=== PATIENT | female | born 1970 | race Native Hawaiian/Other Pacific Islander ===

== ENCOUNTER 2017-04-19 10:39 | Outpatient (CLI) | payer BC ==
[~2017-04-19 10:39] MED LIST: ACCU-CHEK AVIVA PLUS XX; AVIANE OR; B12-ACTIVE1 MG PO; BENZONATATE200 MG PO; CEFTIN500 MG OR; COZAAR100 MG PO; FLUT0.05 NAS; HYDROCHLOROT50 MG PO; IRON OR; KLOR-CON 1010 MEQ OR; KP FOLIC ACID800 MCG OR; METF500T PO; METO50TA27 PO; PRILOSEC OTC20 MG OR; WAL-ITIN1 TAB OR
== END 2017-04-19 11:40 | disposition home or self-care (01) ==
LOC: MAMMO 10:39
DX: Z12.31 Encounter for screening mammogram for malignant neoplasm of breast (principal)
CPT/HCPCS: G0202-TC

== ENCOUNTER 2019-05-03 11:30 | Outpatient (CLI) | payer BC | END 2019-05-03 23:46 | disposition home or self-care (01) | LOC: MAMMO 11:30 | DX: Z12.31 Encounter for screening mammogram for malignant neoplasm of breast (principal) ==

== ENCOUNTER 2020-05-05 08:57 | Outpatient (CLI) | payer BC | END 2020-05-05 19:17 | disposition home or self-care (01) | LOC: MAMMO 08:57 | DX: Z12.31 Encounter for screening mammogram for malignant neoplasm of breast (principal) ==

== ENCOUNTER 2020-06-24 07:56 | Outpatient (CLI) | payer BC, OTHER | END 2020-06-24 23:46 | disposition home or self-care (01) | LOC: LAB 07:56 | DX: Z20.828 Contact with and (suspected) exposure to other viral communicable diseases (principal) | CPT/HCPCS: 87635; G2023; U0003 ==

== ENCOUNTER 2021-05-07 09:54 | Outpatient (CLI) | payer BC | END 2021-05-07 19:09 | disposition home or self-care (01) | LOC: MAMMO 09:54 | PROVIDERS: ATTEND Specialist | DX: Z12.31 Encounter for screening mammogram for malignant neoplasm of breast (principal) ==

== ENCOUNTER 2022-03-17 16:10 | Outpatient (CLI) | payer BC | END 2022-03-17 19:15 | disposition home or self-care (01) | LOC: CT 16:10 | PROVIDERS: ATTEND Internal Medicine | DX: R22.1 Localized swelling, mass and lump, neck (principal) | CPT/HCPCS: 36415; 82565; 84520; Q9963 ==

== ENCOUNTER 2022-06-10 11:55 | Outpatient (CLI) | payer BC | END 2022-06-10 21:22 | disposition home or self-care (01) | LOC: RAD 11:55 | PROVIDERS: ATTEND Internal Medicine | DX: J40 Bronchitis, not specified as acute or chronic (principal) ==

== ENCOUNTER 2022-06-25 15:30 | Outpatient (CLI) | payer BC | END 2022-06-25 21:52 | disposition home or self-care (01) | LOC: MAMMO 15:30 | PROVIDERS: ATTEND Specialist | DX: Z12.31 Encounter for screening mammogram for malignant neoplasm of breast (principal) ==

== ENCOUNTER 2023-05-03 10:33 | Outpatient (CLI) | payer BC | END 2023-05-03 19:23 | disposition home or self-care (01) | LOC: RAD 10:33 | PROVIDERS: ATTEND Internal Medicine | DX: Z78.0 Asymptomatic menopausal state (principal) ==

== ENCOUNTER 2023-06-28 15:21 | Outpatient (CLI) | payer BC | END 2023-06-28 22:08 | disposition home or self-care (01) | LOC: MAMMO 15:21 | PROVIDERS: ATTEND Specialist | DX: Z12.31 Encounter for screening mammogram for malignant neoplasm of breast (principal) ==